=== PATIENT | male | born 1985 | race African-American/Black ===

== ENCOUNTER 2016-09-18 15:20 | Emergency (ER) | payer MEDICAID | END 2016-09-18 17:08 | disposition home or self-care (01) | LOC: D.ER 15:20 | DX: S43.102A Unspecified dislocation of left acromioclavicular joint, initial encounter (principal); V29.9XXA Motorcycle rider (driver) (passenger) injured in unspecified traffic accident, initial encounter; Y93.89 Activity, other specified; Y92.410 Unspecified street and highway as the place of occurrence of the external cause ==